=== PATIENT | female | born 1955 | race Caucasian/White ===

== ENCOUNTER 2016-04-02 09:52 | Emergency (ER) | payer MEDICAID, OTHER ==
[~2016-04-02] VITALS: Ht 160 cm; Wt 74.8 kg
[2016-04-02 10:34] VITALS: BP 124/77
--- NOTE | 2016-04-02 11:30 | NUR ---
PT PRESENTS TO ER FOR EVALUATION OF FACIAL RASH X5 DAYS. HX CROHN'S, ECZEMA, CHRONIC BACK PAIN. DENIES N/V/D; SKIN IS PINK/WARM/DRY; AAOX4 WITH EVEN AND STEADY GAIT; LUNGS CLEAR BL; HR EVEN AND REGULAR; PT DENIES ANY FEVER, CP, SOB, OR COUGH AT THIS TIME; PATIENT STATES PAIN OF 0/10 AT THIS TIME; VSS; PATIENT POSITIONED FOR COMFORT; HOB ELEVATED; BEDRAILS UP X2; BED DOWN. ER MD MADE AWARE OF PT STATUS.
[2016-04-02 12:15] VITALS: BP 116/79
--- NOTE | 2016-04-02 12:15 | NUR ---
Patient discharged with v/s stable. Written and verbal after care instructions given and explained. Patient alert, oriented and verbalized understanding of instructions. Ambulatory with steady gait. All questions addressed prior to discharge. ID band removed. Patient advised to follow up with PMD. Rx of HYDROCORTISONE, BACITRACIN given. Patient educated on indication of medication including possible reaction and side effects. Opportunity to ask questions provided and answered.
== END 2016-04-02 12:15 | disposition home or self-care (01) ==
LOC: MED 09:52
DX: L25.3 Unspecified contact dermatitis due to other chemical products (principal); K50.90 Crohn's disease, unspecified, without complications